=== PATIENT | female | born 1960 | race American Indian/Alaskan Native ===

== ENCOUNTER 2017-07-22 10:41 | Emergency (ER) | payer OTHER ==
--- NOTE | 2017-07-22 11:57 | XRay Report ---
Right shoulder 2 views: History: Shoulder pain. Findings: The a.c. joint and the glenohumeral joint appears unremarkable. Sclerosis at the greater tuberosity right humerus. Decrease in acromiohumeral space. There is suspicion of a spur identified at the inferior aspect of the tip of the olecranon process which may cause impingement. Impression: Findings as detailed above. If clinically indicated MRI scan may be advised.
[2017-07-22] MEDS ORDERED: ZOFRAN ODT PO ONE (12:18)
[2017-07-22] MEDS ORDERED: MOTRIN PO ONE (12:18)
[2017-07-22] MEDS ORDERED: NORCO 5/325 PO ONE (12:18)
--- NOTE | 2017-07-22 12:22 | Emergency Department Report ---
ED Extremity Problem HPI - General Chief complaint: Shoulder Injury Stated complaint: PAINT TO SHOLDER Time Seen by Provider: 07/22/17 11:53 Source: patient Mode of arrival: Ambulatory Limitations: No Limitations - History of Present Illness Initial comments: 57F past medical history none presents with complaint of acute on chronic right shoulder pain. Patient states that this episode has been ongoing for 4 days. Patient is awake alert and oriented 3 accompanied by family members at bedside. Appears to be uncomfortable states she has been taking Tylenol for pain with minimal relief of her pain. Patient is visibly ranging her right shoulder. Denies any fevers or chills denies any chest pain denies shortness of breath. Patient states that it is an aching sort of pain. Slightly worse with elevating her right shoulder. States she has had this intermittently in the past. Denies any direct trauma to shoulder denies any falls. Denies any paresthesias in the right upper extremity. MD Complaint: extremity pain Onset/Timin -: days(s) Location: right, upper extremity History of Same: Yes -: Yes arthralgia Severity scale (0 -10): 7 Quality: aching Consistency: constant Improves with: immobilization Worsens with: exertion Associated Symptoms: denies other symptoms - Related Data Previous Rx's Medication Instructions Recorded Last Taken Type Ibuprofen [Motrin] 600 mg PO Q8H PRN #30 tablet 07/22/17 Unknown Rx traMADol [Ultram 50 MG tab] 50 mg PO Q6HR PRN #14 tablet 07/22/17 Unknown Rx Allergies Allergy/AdvReac Type Severity Reaction Status Date / Time No Known Allergies Allergy Unverified 07/22/17 10:43 ED Review of Systems ROS: Stated complaint: PAINT TO SHOLDER Other details as noted in HPI Constitutional: denies: chills, fever Eyes: denies: eye pain, eye discharge, vision change ENT: denies: ear pain, throat pain Respiratory: denies: cough, shortness of breath, wheezing Cardiovascular: denies: chest pain, palpitations Endocrine: no symptoms reported Gastrointestinal: denies: abdominal pain, nausea, diarrhea Genitourinary: denies: urgency, dysuria, discharge Musculoskeletal: as per HPI, arthralgia (right shoulder). denies: back pain, joint swelling Skin: denies: rash, lesions Neurological: denies: headache, weakness, paresthesias Psychiatric: denies: anxiety, depression Hematological/Lymphatic: denies: easy bleeding, easy bruising ED Past Medical Hx - Past Medical History Previous Medical History?: No - Surgical History Past Surgical History?: No - Social History Smoking Status: Never Smoker Substance Use Type: None - Medications Home Medications: Home Medications Medication Instructions Recorded Confirmed Last Taken Type Ibuprofen [Motrin] 600 mg PO Q8H PRN #30 tablet 07/22/17 Unknown Rx traMADol [Ultram 50 MG tab] 50 mg PO Q6HR PRN #14 tablet 07/22/17 Unknown Rx ED Physical Exam - General Limitations: No Limitations General appearance: alert, in no apparent distress - Head Head exam: Present: atraumatic, normocephalic - Eye Eye exam: Present: normal appearance, PERRL, EOMI - ENT ENT exam: Present: mucous membranes moist - Neck Neck exam: Present: normal inspection, full ROM - Respiratory Respiratory exam: Present: normal lung sounds bilaterally. Absent: respiratory distress - Cardiovascular Cardiovascular Exam: Present: regular rate, normal rhythm. Absent: systolic murmur, diastolic murmur, rubs, gallop - GI/Abdominal GI/Abdominal exam: Present: soft, normal bowel sounds - Extremities Exam Extremities exam: Present: normal inspection, full ROM - Expanded Upper Extremity Exam Right General: Present: other, normal inspection Shoulder Exam: Present: normal inspection, full ROM Upper Arm exam: Present: normal inspection, full ROM Elbow exam: Present: normal inspection, full ROM Forearm Wrist exam: Present: normal inspection, full ROM Hand Wrist exam: Present: normal inspection, full ROM Neuro motor exam: Present: wrist extension intact, thumb opposition intact, thumb IP flexion intact, thumb adduction intact, fingers 2-5 abduction intact Neurosensory exam: Present: radial nerve intact, ulnar nerve intact, median nerve intact Vascular: Present: radial pulse (distal radial pulse strong to palpation) - Back Exam Back exam: Present: normal inspection - Neurological Exam Neurological exam: Present: alert, oriented X3, CN II-XII intact, normal gait - Psychiatric Psychiatric exam: Present: normal affect, normal mood - Skin Skin exam: Present: warm, dry, intact, normal color. Absent: rash ED Course Vital Signs 07/22/17 10:43 Temperature 99.2 F Pulse Rate 105 H Respiratory 18 Rate Blood Pressure 136/72 O2 Sat by Pulse 98 Oximetry ED Medical Decision Making - Medical Decision Making A/P: Right shoulder degenerative disease, right shoulder pain, calcific tendinitis right shoulder 1-x-ray consistent with sclerotic changes and degenerative changes of right shoulder joint. No clinical signs of septic joint on exam no cellulitis overlying shoulder no redness no erythema. 2-passive range of motion intact. Active range of motion intact but painful. Range of motion abduction and abduction internal and external rotation flexion and extension intact. Distal pulses right upper extremity intact. Distal sensation intact. 3-patient lives in [place] I advised her to follow up with her primary care doctor. I provided her information for orthopedics and primary care clinics in the [place] area where her family lives. 4-short course Motrin and tramadol when necessary 5- I advised the patient to not wear a shoulder sling to prevent frozen shoulder syndrome. Critical care attestation.: If time is entered above; I have spent that time in minutes in the direct care of this critically ill patient, excluding procedure time. ED Disposition Clinical Impression: Pain, joint, shoulder, right Arthritis of shoulder region, right, degenerative Qualifiers: Osteoarthritis type: unspecified Qualified Code(s): M19.011 - Primary osteoarthritis, right shoulder Disposition: DC- TO HOME OR SELFCARE Is pt being admited?: No Does the pt Need Aspirin: No Condition: Stable Instructions: Osteoarthritis (ED), Calcific Tendinitis (ED), Arthralgia (ED) Prescriptions: Ibuprofen [Motrin] 600 mg PO Q8H PRN #30 tablet PRN Reason: Pain traMADol [Ultram 50 MG tab] 50 mg PO Q6HR PRN #14 tablet PRN Reason: Pain Referrals: [facility] [Provider Group] - 3-5 Days [facility] [Outside] - 3-5 Days [facility] [Provider Group] - 3-5 Days Forms: Accompanied Note Time of Disposition: 12:19
[2017-07-22 13:36] VITALS: BP 126/78
== END 2017-07-22 13:37 | disposition home or self-care (01) ==
LOC: ED 10:41
DX: M19.011 Primary osteoarthritis, right shoulder (principal); G89.29 Other chronic pain
CPT/HCPCS: 99283; Q0162